=== PATIENT | male | born 1960 | race Caucasian/White ===

== ENCOUNTER 2017-08-31 06:19 | Day surgery (SDC) | payer BC, OTHER ==
[2017-08-30 11:20] VITALS: BMI 27.1
[2017-08-31] MEDS ORDERED: SUCCINYLCHOLINE CHLORIDE 200 MG/10 ML VIAL ONE (07:33)
[2017-08-31] MEDS ORDERED: PROPOFOL 20 ML ONE (07:33)
[2017-08-31] MEDS ORDERED: LIDOCAINE HCL/PF 2% SDV 5ML VIAL ONE (07:34)
[2017-08-31] MEDS ORDERED: BUPIVACAINE HCL/PF 0.5% (5MG/ML) 10 ML VIAL ONE (07:43)
[2017-08-31] MEDS ORDERED: MIDAZOLAM HCL 2 MG/2 ML SINGLE DOSE VIAL ONE (08:18)
[2017-08-31] MEDS ORDERED: DEXAMETHASONE SOD PHOSPHATE 4 MG/1 ML VIAL ONE (08:21)
[2017-08-31] MEDS ORDERED: ceFAZolin SODIUM 1 GM VIAL IVPB ONE (08:47)
[2017-08-31] MEDS ORDERED: ceFAZolin SODIUM 1 GM VIAL ONE (08:50)
[2017-08-31] MEDS ORDERED: BUPIVACAINE HCL/PF 0.5% (5MG/ML) 10 ML VIAL IJ ONE (09:12)
--- NOTE | 2017-08-31 09:14 | HP ---
Satellite [facility] - Chief Complaint Chief Complaint: left knee pain - Past Medical History Allergies/Adverse Reactions: Allergies Allergy/AdvReac Type Severity Reaction Status Date / Time niacin Allergy Severe Swelling Verified 08/31/17 06:45 - Current Medications Current Medications: Home Medications Medication Instructions Recorded Ferrous Sulfate [Slow Fe] 65 mg PO ASDIR 08/30/17 Hydrocodone/Acetaminophen [[place] 1 each PO Q6H PRN #20 tablet MDD 4 08/31/17 5-325 Tablet] Satellite Physical Exam - Physical Examination Vital Signs: Vital Signs Period Temp Pulse Resp BP Sys/Gallardo Pulse Ox Last 24 Hr 97.5 F 65 18 125/64 98 General Appearance: Well Nourished, Well Developed, Alert & Oriented x3 ENT: Clear Lung: Normal air movement Heart: Regular rate & rhythm Extremities: Other (left knee- + swelling, + ttp, decr rom, + mcmurrays, + apleys, nvi MRI + mmt,lmt) Neurological: Intact, Alert, Oriented Satellite Impression/Plan - Impression/Plan Impression: left knee internal derangement Operative Procedure: left knee arthroscopy Date to be Performed: 08/31/17
--- NOTE | 2017-08-31 09:15 | OP ---
Operative Note - Note: Operative Date: 08/31/17 ([facility]) Pre-Operative Diagnosis: left knee internal derangement Operation: left knee arthroscopy with PMM, PLM, debridement chondroplasty Post-Operative Diagnosis: Same as Pre-op Surgeon: Jerardo Cole Felt Cutter: Maurisio Dangelo Anesthesia: General, Local Specimens Removed: shavings Estimated Blood Loss (mls): 5 Operative Report Dictated: Yes
[2017-08-31] MEDS ORDERED: oxyCODONE HCL 5 MG TABLET PO PRN ×2 (09:25)
[2017-08-31] MEDS ORDERED: ONDANSETRON 4 MG/2 ML VIAL IVPUSH PRN (09:25)
[2017-08-31] MEDS ORDERED: LACTATED RINGERS SOLUTION 1,000 ML IV SCH (09:30)
[2017-08-31 10:39] VITALS: TEMP 98.2
[2017-08-31] MEDS ORDERED: oxyCODONE HCL 5 MG TABLET ONE (11:42)
[2017-08-31] MEDS ORDERED: oxyCODONE HCL 5 MG TABLET PO ONE (11:45)
[2017-08-31 12:49] VITALS: BP 140/70; PULSE 76
--- NOTE | 2017-08-31 13:27 | OP ---
DATE OF OPERATION: 08/31/2017 PREOPERATIVE DIAGNOSIS: Left knee medial meniscus tear and osteoarthritis. POSTOPERATIVE DIAGNOSIS: Left knee medial meniscus tear and osteoarthritis, plus lateral meniscus tear. SURGEON: Jerardo Cole MD PLATE GLASS POLISHER: Maurisio Dangelo MD ANESTHESIOLOGIST: Vasyl Roman MD ANESTHESIA: MAC anesthesia. DRAINS: None. COMPLICATIONS: None. SPECIMENS: Arthroscopic shavings. BLOOD LOSS: None. BLOOD GIVEN: None. FLUID REPLACEMENT: 500 mL. PROCEDURE: Left knee arthroscopy, partial medial and lateral meniscectomy, and debridement chondroplasty. INDICATIONS: This patient is a 56-year-old male with a preoperative diagnosis of left knee pain, medial meniscus tear, and osteoarthritis. After understanding the potential risks, complications, alternatives, and benefits of surgical versus nonsurgical treatment, the patient elected to undergo this procedure. DESCRIPTION OF PROCEDURE: The patient was brought to the operating room, peripheral IV placed, and IV sedation was given. One gram of IV Ancef was given. Left lower extremity was prepped and draped in sterile fashion. Ample Webril was placed around the thigh. A tourniquet was applied, and Styrofoam ring was applied. Limb was exsanguinated with an Esmarch bandage, and tourniquet was inflated to 275 mmHg. A superior medial outflow portal was established, lateral portal was established, and arthroscope was introduced into the joint using a spinal needle under direct visualization. The medial portal was established. A diagnostic arthroscopy was performed. It was seen that in the medial compartment, the patient had grade 2 changes in the medial tibial plateau and widespread grade 2 and small areas of grade 2 changes in the medial femoral condyle. There were some loose fragments which were debrided with the curved shaver. Patient had some fraying of the posterior horn of the medial meniscus. This was debrided, but overall the medial meniscus looked okay. The ACL looked good, the intercondylar notch looked good. There was some synovitis, which was removed. The lateral compartment was inspected. Overall the lateral compartment looked good. As far as arthritis, there were grade 1 changes of the lateral tibial plateau. No arthritis in the lateral femoral condyle, and overall, if we chose to do a partial knee replacement, I would leave the lateral compartment alone at this time. Patient had a radial beak tear of the body of the lateral meniscus. Photographs were taken. This was debrided with a curved shaver. The patellofemoral joint had synovitis, which was removed. This revealed widespread grade 3 and central areas of grade 4 osteoarthritis of the femoral trochlea. The undersurface of the patella looked good. There were loose flaps. These were debrided with a curved shaver. After the debridement chondroplasty of the femoral trochlea, photographs were taken. The area was copiously irrigated and washed out. All debris and excess saline were removed. The arthroscopy portal was closed with 3-0 nylon sutures. The area was then washed and dried, 20 mL of 0.5% Marcaine was introduced into the joint. The area was then covered with Xeroform, 4x4 gauze, Webril, and Des bandage. Tourniquet was taken down after total tourniquet of 18 minutes. There were no complications during the case. The patient tolerated the procedure well, was brought to the ambulatory recovery room in stable condition. Aditya [id number]
--- NOTE | 2017-09-01 14:59 | PATH ---
Surgical Pathology Report Patient Name: ELIZABETH MENDOZA [facility]. Rec. #: [id number] /Age/Gender: 1960 (Age: 56) / M Account: [id number] Location: [facility] Taken: 08/31/2017 Received: 08/31/2017 Reported: 09/01/2017 Physicians: Aditya Castillo M.D. Specimen(s) Received LEFT KNEE SHAVINGS Clinical History Left knee internal derangement Final Diagnosis KNEE, LEFT, ARTHROSCOPIC SHAVING: FIBROCARTILAGE ALONG WITH PORTIONS OF SYNOVIUM CONSISTENT WITH ARTHROSCOPIC SHAVINGS, AND HYALINE CARTILAGE WITH CHANGES SUGGESTIVE OF DEGENERATIVE JOINT DISEASE. Electronically Signed Fernandez Sparks M.D. Gross Description Received in formalin, labeled "left knee shavings," is a 3.5 x 3.0 x 0.4 cm. aggregate of zamarripa-yellow soft tissue fragments. A dairy supplies sales representative portion is submitted in one cassette. /08/31/2017 saudi08/31/2017
== END 2017-08-31 12:15 | disposition home or self-care (01) ==
LOC: JASU-SURG 06:19
PROVIDERS: ATTEND Orthopaedic Surgery
PROC: 0SBD4ZZ Excision of Left Knee Joint, Percutaneous Endoscopic Approach (ICD-10-PCS; 2017-08-31)
PROC: 0SBD4ZZ Excision of Left Knee Joint, Percutaneous Endoscopic Approach (ICD-10-PCS; principal; 2017-08-31 08:00)
DX: S83.242A Other tear of medial meniscus, current injury, left knee, initial encounter (principal); X58.XXXA Exposure to other specified factors, initial encounter; Y93.9 Activity, unspecified; Y92.9 Unspecified place or not applicable; Y99.9 Unspecified external cause status; M17.12 Unilateral primary osteoarthritis, left knee
CPT/HCPCS: 88304-TC; 94760